=== PATIENT | female | born 1970 | race Caucasian/White ===

== ENCOUNTER 2021-06-10 13:49 | Inpatient (IN) | payer OTHER ==
[~2021-06-10] VITALS: Ht 157.5 cm; Wt 81.6 kg
[~2021-06-10 13:49] MED LIST: LORTAB 7.5-3251 EACH PO; NORCO 7.5-3251 EACH PO; ZOFRAN ODT4 MG PO
[2021-06-10 15:31] LABS: HEMOGLOBIN 12.7 gm/dl (12.3-15.3); RED BLOOD COUNT 4.24 M/UL (4.00-5.10); WHITE BLOOD COUNT 11.4 K/UL (4.5-11.0)
[2021-06-10] MEDS ORDERED: BUPRENORPHIN-N1 EACH PO (19:52)
[2021-06-11] MEDS ORDERED: IBUPROFEN800 MG PO (16:58)
[2021-06-11] MEDS ORDERED: COLACE100 MG PO (16:58)
--- NOTE | 2021-06-11 17:59 | NUR ---
Patient is back to floor, stable condition. vitals 109/61, 95% on RA, Pulse 80, temp 98.7. Patient has 4 incisions on abdomen with durabond over them. Patientis alert and oriented and doing well. Will continue to monitor.
[2021-06-12 06:19] LABS: HEMOGLOBIN 10.8 gm/dl (12.3-15.3)
[2021-06-12] MEDS ORDERED: BACTRIM DS TAB1 EACH PO (09:45)
== END 2021-06-12 10:28 | disposition home or self-care (01) | DRG 742 ==
LOC: ER1 13:49 → CDU 19:04 → M/S 19:53
PROVIDERS: Nurse Practitioner; Obstetrics & Gynecology; ADMIT Obstetrics & Gynecology
PROC: 0UB04ZZ Excision of Right Ovary, Percutaneous Endoscopic Approach (ICD-10-PCS; 2021-06-11)
PROC: 0DNU4ZZ Release Omentum, Percutaneous Endoscopic Approach (ICD-10-PCS; 2021-06-11)
PROC: 0UB04ZZ Excision of Right Ovary, Percutaneous Endoscopic Approach (ICD-10-PCS; principal; 2021-06-11 14:54)
DX: N83.201 Unspecified ovarian cyst, right side (principal); F11.20 Opioid dependence, uncomplicated; N39.0 Urinary tract infection, site not specified; Z20.822 Contact with and (suspected) exposure to COVID-19; N83.511 Torsion of right ovary and ovarian pedicle; N73.6 Female pelvic peritoneal adhesions (postinfective); N83.8 Other noninflammatory disorders of ovary, fallopian tube and broad ligament; Z98.51 Tubal ligation status; Z98.890 Other specified postprocedural states; Z98.891 History of uterine scar from previous surgery
CPT/HCPCS: 36415; 80053; 81001; 82150; 83605; 83690; 85014; 85018; 85025; 87040; 87086; 93005; 96374; 96375; 99285; J0696; J1100; J1170; J1885; J2001; J2405; J2550; J2704; J2710; J3010; J7030; J7120; Q9967; U0002

== ENCOUNTER 2021-09-21 14:02 | Emergency (ER) | payer OTHER ==
[~2021-09-21 14:02] MED LIST changes: +BACTRIM DS TAB1 EACH PO; +BUPRENORPHIN-N1 EACH PO; +COLACE100 MG PO; +IBUPROFEN800 MG PO
== END 2021-09-21 18:50 | disposition left against medical advice (07) ==
LOC: ER1 14:02
DX: Z53.21 Procedure and treatment not carried out due to patient leaving prior to being seen by health care provider (principal)